=== PATIENT | male | born 1975 | race African-American/Black ===

== ENCOUNTER 2016-12-10 21:00 | Emergency (ER) | payer OTHER ==
[~2016-12-10] VITALS: Ht 193 cm; Wt 71.2 kg
[2016-12-10 21:15] VITALS: BP 113/67; PULSE 101; RESP 18; TEMP 99.4; O2SAT 94
--- NOTE | 2016-12-10 21:20 | NUR ---
Patient to ER hallway 1. Side rails up.
--- NOTE | 2016-12-10 21:24 | NUR ---
ED BLACKJACK DEALER Lieberman assessing pt at bedside.
--- NOTE | 2016-12-10 21:25 | NUR ---
Pt came to ED accompanied by significant other. Pt is ambulatory. Facial swelling noted to left side of face. A/O x4. Pt states that he had a "bad root canal, fell asleep on my left side and woke up like this." He also stated, "my dentist told me to go to urgent care to get a broad spectrum antibiotic because there may be an infection and I have dental surgery tomorrow." Pt denies SOB, CP, N/V/D. No acute distress noted.
[2016-12-10] MEDS ORDERED: LIDOCAINE 1% 10 MG/ML, 20 ML MDV INJ ONE (21:30)
[2016-12-10] MEDS ORDERED: cefTRIAXone 1 GM VIAL IM ONE (21:30)
[2016-12-10] MEDS ORDERED: DEXAMETHASONE SOD PHOSPHATE 10 MG/ML VIAL IM ONE (21:45)
[2016-12-10 21:58] VITALS: BP 115/68; PULSE 99; RESP 18; TEMP 99.3; O2SAT 95
--- NOTE | 2016-12-10 21:58 | NUR ---
Patient given written and verbal discharge instructions and verbalizes understanding. ER [employer] Luisana discussed with patient the results and treatment provided. Patient in stable condition. ID arm band removed. Patient educated on pain management and to follow up with PMD. Pain Scale 0/10. Opportunity for questions provided and answered.
== END 2016-12-10 21:58 | disposition home or self-care (01) ==
LOC: SED 21:00
DX: K04.7 Periapical abscess without sinus (principal)
CPT/HCPCS: 96372; 99284; J0696; J1100; J2001